=== PATIENT | male | born 1965 | race Caucasian/White ===

== ENCOUNTER 2019-01-19 17:33 | Emergency (ER) | payer OTHER, SELFPAY ==
[2019-01-19 17:38] VITALS: BP 123/77; PULSE 73; RESP 18; TEMP 36.8; O2SAT 95
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
[2019-01-19] MEDS: Lidocaine 5% Patch 1 PATCH TP (18:22)
[2019-01-19] MEDS: Ibuprofen 600 MG TAB PO (18:22)
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
[2019-01-19] MEDS: oxyCODONE 5 MG TAB 10 MG PO (19:31)
== END 2019-01-19 19:36 | disposition home or self-care (01) ==
PROVIDERS: Emergency Provider Physician Assistant
DX: S43.101A Unspecified dislocation of right acromioclavicular joint, initial encounter (principal); V18.0XXA Pedal cycle driver injured in noncollision transport accident in nontraffic accident, initial encounter; Y93.55 Activity, bike riding; I10 Essential (primary) hypertension
CPT/HCPCS: 23540; 73000; 73030; L3650